=== PATIENT | female | born 1930 | race African-American/Black ===

== ENCOUNTER 2019-01-07 05:45 | Emergency (ER) | payer OTHER ==
[~2019-01-07] VITALS: Ht 157.5 cm; Wt 71.0 kg
[2019-01-07] MEDS ORDERED: FUROSEMIDE 40MG/4ML VIAL IV ONE (06:00)
[2019-01-07] MEDS ORDERED: NITROGLYCERIN 0.4MG TABLET SL SL PRN (06:00)
[2019-01-07 06:15] LABS: CHLORIDE 109 mEq/L (98-107)
[2019-01-07 06:22] LABS: BASOPHILS % 0.7 % (0.0-2.0); EOSINOPHILS % 2.1 % (0.0-5.0); HEMATOCRIT. 28.8 % (36.0-48.0); HEMOGLOBIN. 9.5 g/dL (12.0-16.0); LYMPHOCYTES % 17.1 % (20.0-50.0); MEAN CORPUSCULAR HEMOGLOBIN 31.5 pg (28.0-32.0); MEAN CORPUSCULAR VOLUME 95.5 fL (81.0-99.0); MEAN PLATELET VOLUME 10.6 fl (7.4-10.4); MONOCYTES % 5.6 % (2.0-8.0); NEUTROPHILS % 74.5 % (40.0-76.0); PLATELET 165 x1000/uL (130-400); RED BLOOD CELL COUNT 3.02 mill/uL (4.2-5.4); RED CELL DISTRIBUTION WIDTH 15.9 % (11.6-14.6)
[2019-01-07 06:59] LABS: BG BASE EXCESS -2.9 mmol/L (-2.0-2.0); BG BILEVEL POS AIRWAY PRESSURE 15/5; BG CARBOXYHEMOGLOBIN 0.3 % (0.5-1.5); BG DEOXYHEMOGLOBIN 4.2 % (0.0-5.0); BG FRACTION INSPIRED OXYGEN 40; BG HCO3 ACT 22.3 mmol/L (22.0-26.0); BG METHEMOGLOBIN 0.7 % (0.0-1.5); BG OXYGEN SATURATION 95.8 % (92.0-98.5); BG OXYHEMOGLOBIN 94.8 % (94.0-97.0); BG PCO2 40.2 mmHg (35.0-45.0); BG PH 7.362 (7.350-7.450); BG PO2 91.4 mmHg (75.0-100.0); BG SAMPLE SITE RIGHT BRACHIAL; BG TOTAL HEMOGLOBIN 9.7 g/dL (12.0-18.0); BG VENT MODE MASK - BIPAP
[2019-01-07] MEDS ORDERED: ASPIRIN 81MG TABLET PO ONE (07:30)
[2019-01-07 13:20] VITALS: BP 153/64
== END 2019-01-07 13:34 | disposition short-term general hospital (02) ==
LOC: ER 05:45 → CANBEDREQ 17:58
DX: I11.0 Hypertensive heart disease with heart failure (principal); I50.1 Left ventricular failure, unspecified; N28.9 Disorder of kidney and ureter, unspecified; R06.03 Acute respiratory distress; E11.9 Type 2 diabetes mellitus without complications; Z88.0 Allergy status to penicillin
CPT/HCPCS: 36415; 36600; 71045; 80053; 82375; 82805; 83880; 84484; 85025; 93005; 94660; 96374; 99291; J1940

== ENCOUNTER 2019-02-25 02:00 | Inpatient (IN) | payer OTHER ==
[~2019-02-25] VITALS: Ht 154.9 cm; Wt 38.6 kg
[2019-02-25] VITALS (38 sets, daily range): BP systolic 133–203; BP diastolic 52–122
[2019-02-25] MEDS ORDERED: NITROGLYCERIN 50MG PREMIX 250 ML IV ONE (02:05)
[2019-02-25] MEDS ORDERED: FUROSEMIDE 100MG/10ML VIAL IVP ONE (02:15)
[2019-02-25] MEDS ORDERED: NITROGLYCERIN 0.4MG TABLET SL SL PRN ×2 (02:15→06:15)
[2019-02-25 02:26] LABS: BASOPHILS % 0.6 % (0.0-2.0); EOSINOPHILS % 1.4 % (0.0-5.0); HEMATOCRIT. 28.4 % (36.0-48.0); HEMOGLOBIN. 9.5 g/dL (12.0-16.0); LYMPHOCYTES % 24.3 % (20.0-50.0); MEAN CORPUSCULAR HEMOGLOBIN 32.2 pg (28.0-32.0); MEAN CORPUSCULAR VOLUME 96.3 fL (81.0-99.0); MEAN PLATELET VOLUME 10.2 fl (7.4-10.4); MONOCYTES % 5.8 % (2.0-8.0); NEUTROPHILS % 67.9 % (40.0-76.0); PLATELET 141 x1000/uL (130-400); RED BLOOD CELL COUNT 2.95 mill/uL (4.2-5.4); RED CELL DISTRIBUTION WIDTH 15.1 % (11.6-14.6)
[2019-02-25 02:44] LABS: CHLORIDE 103 mEq/L (98-107)
[2019-02-25] MEDS ORDERED: SODIUM CHLORIDE 0.9% 1,000 ML IV ONE (03:00)
[2019-02-25] MEDS ORDERED: NIAC500T5 PO (04:11)
[2019-02-25] MEDS ORDERED: AMLO10TA4 PO (04:11)
[2019-02-25] MEDS ORDERED: COR6 PO (04:11)
[2019-02-25] MEDS ORDERED: LISI-604 PO (04:11)
[2019-02-25] MEDS ORDERED: ASPI-1393 PO (04:11)
[2019-02-25] MEDS ORDERED: FURO-152 PO (04:11)
[2019-02-25] MEDS ORDERED: ATOR80TA PO (04:11)
[2019-02-25] MEDS ORDERED: CHOL20004 PO (04:11)
[2019-02-25] MEDS ORDERED: NITROGLYCERIN 50MG PREMIX 250 ML IV PRN (05:15)
[2019-02-25] MEDS ORDERED: ACETAMINOPHEN 650MG/20.3ML UDC PO PRN (05:15)
[2019-02-25] MEDS ORDERED: ONDANSETRON HCL 4MG/2ML INJ IV PRN ×2 (05:15→06:15)
[2019-02-25] MEDS ORDERED: CLONIDINE 0.1MG TABLET PO PRN ×2 (05:15→06:15)
[2019-02-25 06:03] LABS: BASOPHILS % 0.4 % (0.0-2.0); EOSINOPHILS % 0.3 % (0.0-5.0); HEMATOCRIT. 27.5 % (36.0-48.0); HEMOGLOBIN. 9.5 g/dL (12.0-16.0); LYMPHOCYTES % 7.6 % (20.0-50.0); MEAN CORPUSCULAR HEMOGLOBIN 32.6 pg (28.0-32.0); MEAN CORPUSCULAR VOLUME 94.9 fL (81.0-99.0); MEAN PLATELET VOLUME 10.3 fl (7.4-10.4); MONOCYTES % 5.1 % (2.0-8.0); NEUTROPHILS % 86.6 % (40.0-76.0); PLATELET 131 x1000/uL (130-400); RED CELL DISTRIBUTION WIDTH 14.9 % (11.6-14.6)
[2019-02-25] MEDS ORDERED: GUAIFENESIN 200MG/10ML SUGAR FREE UDC PO PRN (06:15)
[2019-02-25] MEDS ORDERED: IPRATROPIUM/ALBUTEROL 0.5-3(2.5)MG/3ML NEB INH PRN (06:15)
[2019-02-25] MEDS ORDERED: MAGNESIUM/ALUMINUM HYDROXIDE/SIMETHICONE 30ML UDC PO PRN (06:15)
[2019-02-25] MEDS ORDERED: DEXTROSE 50% WATER 50ML SYRINGE IV PRN (06:15)
[2019-02-25] MEDS ORDERED: DOCUSATE SODIUM 100MG CAPSULE PO PRN (06:15)
[2019-02-25] MEDS ORDERED: METOLAZONE 5MG TABLET PO NR (06:15)
[2019-02-25] MEDS ORDERED: MORPHINE SULFATE 4 MG/ML CPJ (NOT FOR IM USE) IV PRN (06:15)
[2019-02-25] MEDS ORDERED: TRAMADOL 50MG TABLET PO PRN (06:15)
[2019-02-25] MEDS ORDERED: ACETAMINOPHEN 325MG TABLET PO PRN (06:15)
[2019-02-25 06:26] LABS: CREATINE KINASE MB FRACTION 1.8 ng/mL (0.5-3.6)
[2019-02-25] MEDS: BLOOD SUGAR DIAGNOSTIC STRIP TEST SCH ×4 (07:50→20:32)
[2019-02-25] MEDS: INSULIN LISPRO 100 UNITS/ML SUBCUT SCH ×4 (08:16→20:32)
[2019-02-25] MEDS: FUROSEMIDE 100MG/10ML VIAL IVP SCH ×2 (08:24→20:23)
[2019-02-25] MEDS: AMLODIPINE 10MG TABLET PO SCH (08:24)
[2019-02-25] MEDS: ASPIRIN 325MG EC TABLET PO SCH (08:24)
[2019-02-25] MEDS: METOPROLOL TARTRATE 25MG TABLET PO SCH ×2 (08:24→20:22)
[2019-02-25] MEDS: FAMOTIDINE 20MG/2ML VIAL IV SCH (08:24)
[2019-02-25] MEDS: POTASSIUM CHLORIDE 20MEQ TABLET SR PO SCH (08:24)
[2019-02-25] MEDS: ENOXAPARIN 30MG/0.3ML SYR SUBCUT SCH (08:25)
[2019-02-25] MEDS ORDERED: PANTOPRAZOLE SODIUM 40 MG/VIAL IV SCH (09:00)
[2019-02-25 10:59] LABS: FOLIC ACID (FOLATE) SERUM 14.5 ng/mL (>5.38)
[2019-02-25 12:27] LABS: *AMPHETAMINES SCREEN URINE NEGATIVE (NEGATIVE); *BARBITURATES SCREEN URINE NEGATIVE (NEGATIVE); *BENZODIAZEPINES SCREEN URINE NEGATIVE (NEGATIVE); *COCAINE SCREEN URINE NEGATIVE (NEGATIVE); METHADONE URINE SCREEN NEGATIVE (NEGATIVE)
[2019-02-25 12:28] LABS: CANNABINOID URINE SCREEN NEGATIVE (NEGATIVE); OPIATES URINE SCREEN NEGATIVE (NEGATIVE); PHENCYCLIDINE URINE SCREEN NEGATIVE (NEGATIVE)
[2019-02-25 16:09] LABS: CREATINE KINASE MB FRACTION 2.4 ng/mL (0.5-3.6)
[2019-02-25] MEDS: SPIRONOLACTONE 25MG TABLET PO SCH (17:15)
[2019-02-25] MEDS ORDERED: ZOLPIDEM TARTRATE 5MG TABLET PO PRN (21:00)
[2019-02-26] VITALS (33 sets, daily range): BP systolic 110–191; BP diastolic 53–126
[2019-02-26] MEDS: SPIRONOLACTONE 25MG TABLET PO SCH ×2 (05:48→06:00)
[2019-02-26] MEDS: INSULIN LISPRO 100 UNITS/ML SUBCUT SCH ×2 (08:17→12:14)
[2019-02-26] MEDS: BLOOD SUGAR DIAGNOSTIC STRIP TEST SCH ×2 (08:17→12:14)
[2019-02-26] MEDS: FAMOTIDINE 20MG/2ML VIAL IV SCH (08:45)
[2019-02-26] MEDS: FUROSEMIDE 100MG/10ML VIAL IVP SCH (08:45)
[2019-02-26] MEDS: METOPROLOL TARTRATE 25MG TABLET PO SCH (09:00)
[2019-02-26] MEDS: ENOXAPARIN 30MG/0.3ML SYR SUBCUT SCH (09:00)
[2019-02-26] MEDS: ASPIRIN 325MG EC TABLET PO SCH (09:00)
[2019-02-26] MEDS: AMLODIPINE 10MG TABLET PO SCH (09:00)
[2019-02-26] MEDS: POTASSIUM CHLORIDE 20MEQ TABLET SR PO SCH (09:00)
[2019-02-26] MEDS ORDERED: HALOPERIDOL LACTATE 5MG/ML VIAL IM PRN (10:00)
[2019-02-26] MEDS ORDERED: CLONIDINE HCL 0.3MG/24HR PATCH TD SCH (11:30)
[2019-02-26 12:06] LABS: HEMATOCRIT. 30.1 % (36.0-48.0); HEMOGLOBIN. 10.2 g/dL (12.0-16.0); MEAN CORPUSCULAR HEMOGLOBIN 31.9 pg (28.0-32.0); MEAN PLATELET VOLUME 10.2 fl (7.4-10.4); PLATELET 148 x1000/uL (130-400)
[2019-02-26 13:34] LABS: PLATELET ESTIMATE NORMAL
== END 2019-02-26 16:25 | disposition short-term general hospital (02) | DRG 291 ==
LOC: ER 02:17 → CVICU 03:01 → ENRESERV 03:17
PROVIDERS: ADMIT Internal Medicine; ATTEND Internal Medicine
PROC: 5A09357 Assistance with Respiratory Ventilation, Less than 24 Consecutive Hours, Continuous Positive Airway Pressure (ICD-10-PCS; principal; 2019-02-25)
DX: I11.0 Hypertensive heart disease with heart failure (principal); J96.01 Acute respiratory failure with hypoxia; N17.0 Acute kidney failure with tubular necrosis; G92 Toxic encephalopathy; E44.1 Mild protein-calorie malnutrition; Z68.1 Body mass index [BMI] 19.9 or less, adult; I50.43 Acute on chronic combined systolic (congestive) and diastolic (congestive) heart failure; D63.8 Anemia in other chronic diseases classified elsewhere; E11.9 Type 2 diabetes mellitus without complications; E78.00 Pure hypercholesterolemia, unspecified; E83.51 Hypocalcemia; I27.20 Pulmonary hypertension, unspecified; Z79.899 Other long term (current) drug therapy; Z79.82 Long term (current) use of aspirin; Z88.0 Allergy status to penicillin
CPT/HCPCS: 36415; 71045; 80048; 80061; 80305; 82550; 82553; 82607; 82746; 82962; 83036; 83540; 83550; 83880; 84484; 93005; 93306; 96374; 96375; 99291; J1630; J1650; J1940; J3490; J7030; J7620